=== PATIENT | female | born 1975 | race Two or more races ===

== ENCOUNTER 2021-11-12 07:51 | Outpatient (CLI) | payer OTHER | END 2021-11-12 07:52 | disposition home or self-care (01) | LOC: LAB 07:51 | PROVIDERS: ATTEND Internal Medicine Hematology & Oncology | DX: D50.8 Other iron deficiency anemias (principal); R79.9 Abnormal finding of blood chemistry, unspecified; I10 Essential (primary) hypertension; R74.02 Elevation of levels of lactic acid dehydrogenase [LDH]; K76.89 Other specified diseases of liver; E03.8 Other specified hypothyroidism; E06.3 Autoimmune thyroiditis; D69.6 Thrombocytopenia, unspecified; B20 Human immunodeficiency virus [HIV] disease; B17.9 Acute viral hepatitis, unspecified; Z11.59 Encounter for screening for other viral diseases; D51.3 Other dietary vitamin B12 deficiency anemia; E78.2 Mixed hyperlipidemia; J45.998 Other asthma ==

== ENCOUNTER 2022-03-11 20:20 | Emergency (ER) | payer OTHER ==
[~2022-03-11] VITALS: Ht 165.1 cm; Wt 68.0 kg
[2022-03-11] MEDS ORDERED: ACETAMINOPHEN650 M2 (21:46)
[2022-03-11] MEDS ORDERED: KETO10TA2 PO (21:53)
[2022-03-11] MEDS ORDERED: NORFLEX100MG PO (21:53)
[2022-03-11] MEDS ORDERED: MEDROLPACK PO (21:53)
== END 2022-03-11 22:22 | disposition home or self-care (01) ==
LOC: ER 20:20
DX: M79.662 Pain in left lower leg (principal); Z88.6 Allergy status to analgesic agent; Z91.013 Allergy to seafood

== ENCOUNTER 2022-07-13 08:03 | Outpatient (CLI) | payer OTHER ==
[~2022-07-13 08:03] MED LIST: ACETAMINOPHEN650 M2; KETO10TA2 PO; MEDROLPACK PO; NORFLEX100MG PO
== END 2022-07-13 08:04 | disposition home or self-care (01) ==
LOC: LAB 08:03
PROVIDERS: ATTEND Internal Medicine Hematology & Oncology
DX: D50.8 Other iron deficiency anemias (principal); R79.9 Abnormal finding of blood chemistry, unspecified; I10 Essential (primary) hypertension; R74.02 Elevation of levels of lactic acid dehydrogenase [LDH]; K76.89 Other specified diseases of liver; D69.6 Thrombocytopenia, unspecified; D53.1 Other megaloblastic anemias, not elsewhere classified; E78.2 Mixed hyperlipidemia; J45.998 Other asthma

== ENCOUNTER → 2023-01-07 06:29 | Outpatient (CLI) | payer OTHER | END | disposition home or self-care (01) | LOC: LAB 06:29 | PROVIDERS: ATTEND Internal Medicine Hematology & Oncology | DX: D50.8 Other iron deficiency anemias (principal); R79.9 Abnormal finding of blood chemistry, unspecified; I10 Essential (primary) hypertension; R74.02 Elevation of levels of lactic acid dehydrogenase [LDH]; K76.89 Other specified diseases of liver; C50.919 Malignant neoplasm of unspecified site of unspecified female breast; R97.8 Other abnormal tumor markers; C25.9 Malignant neoplasm of pancreas, unspecified; C56.9 Malignant neoplasm of unspecified ovary; R97.1 Elevated cancer antigen 125 [CA 125]; R97.0 Elevated carcinoembryonic antigen [CEA]; D69.6 Thrombocytopenia, unspecified; D51.3 Other dietary vitamin B12 deficiency anemia; E78.2 Mixed hyperlipidemia; J45.998 Other asthma ==

== ENCOUNTER 2023-07-12 08:04 | Outpatient (CLI) | payer OTHER ==
[2023-07-12 10:23] LABS: HEMATOCRIT 42.7 % (36.0-45.00); HEMOGLOBIN 14.6 g/dL (12.0-15.00); MEAN CELL VOLUME 89.2 fL (80.00-100.00); MEAN CORPUSCULAR HEMOGLOBIN 30.5 pg (27.00-32.0); MEAN CORPUSCULAR HGB CONC 34.2 g/dl (32.0-36.0); PLATELET COUNT 198 K/uL (150-450); RED BLOOD COUNT 4.78 M/uL (4.00-6.00); RED CELL DISTRIBUTION WIDTH 13.3 % (11.5-14.5)
[2023-07-12 11:14] LABS: ALBUMIN 4.2 gm/dL (3.4-5.0); BILIRUBIN TOTAL 0.75 mg/dL (0.3-1.2); CALCIUM 8.8 mg/dL (8.5-10.1); CREATININE SERUM 0.74 mg/dL (0.55-1.02); GFR 83.07; GLOBULINA 3.3 G/DL (2.4-3.5); POTASSIUM 4.58 mEq/L (3.5-5.1); TOTAL PROTEIN 7.5 gm/dL (6.4-8.2)
[2023-07-14 10:57] LABS: FOLIC ACID 8.16 ng/ml (4.78-20)
[2023-07-14 14:40] LABS: MANUAL PLATELET COUNT 464
[2023-07-14 14:47] LABS: PLATELET ESTIMATE NORMAL (NORMAL)
== END 2023-07-12 23:00 | disposition home or self-care (01) ==
LOC: LAB 08:04
PROVIDERS: ATTEND Internal Medicine Hematology & Oncology
DX: D69.6 Thrombocytopenia, unspecified (principal); D51.3 Other dietary vitamin B12 deficiency anemia; E78.2 Mixed hyperlipidemia; J45.998 Other asthma; D50.8 Other iron deficiency anemias; R79.9 Abnormal finding of blood chemistry, unspecified; K76.89 Other specified diseases of liver; E55.9 Vitamin D deficiency, unspecified

== ENCOUNTER 2024-02-26 09:27 | Outpatient (CLI) | payer OTHER | END 2024-02-26 09:28 | disposition home or self-care (01) | LOC: NUCLEAR 09:27 | PROVIDERS: ATTEND Internal Medicine Hematology & Oncology | DX: D69.6 Thrombocytopenia, unspecified (principal); D51.3 Other dietary vitamin B12 deficiency anemia; E78.2 Mixed hyperlipidemia; J45.998 Other asthma; I78.8 Other diseases of capillaries ==

== ENCOUNTER 2024-02-27 09:31 | Outpatient (CLI) | payer OTHER | END 2024-02-27 09:32 | disposition home or self-care (01) | LOC: NUCLEAR 09:31 | PROVIDERS: ATTEND Internal Medicine Hematology & Oncology | DX: I70.213 Atherosclerosis of native arteries of extremities with intermittent claudication, bilateral legs (principal); I78.8 Other diseases of capillaries ==

== ENCOUNTER → 2024-07-03 08:01 | Outpatient (CLI) | payer OTHER ==
[2024-07-03 09:41] LABS: HEMATOCRIT 42.5 % (36.0-45.00); HEMOGLOBIN 14.8 g/dL (12.0-15.00); MEAN CELL VOLUME 86.1 fL (80.00-100.00); MEAN CORPUSCULAR HEMOGLOBIN 29.9 pg (27.00-32.0); MEAN CORPUSCULAR HGB CONC 34.7 g/dl (32.0-36.0); PLATELET COUNT 170 K/uL (150-450); RED BLOOD COUNT 4.94 M/uL (4.00-6.00); RED CELL DISTRIBUTION WIDTH 13.7 % (11.5-14.5)
[2024-07-03 10:15] LABS: ALBUMIN 4.1 gm/dL (3.4-5.0); BILIRUBIN TOTAL 0.57 mg/dL (0.3-1.2); CALCIUM 8.9 mg/dL (8.5-10.1); CREATININE SERUM 0.65 mg/dL (0.55-1.02); GFR 96.09; GLOBULINA 3.1 G/DL (2.4-3.5); POTASSIUM 4.31 mEq/L (3.5-5.1); TOTAL PROTEIN 7.2 gm/dL (6.4-8.2)
[2024-07-04 14:24] LABS: FOLIC ACID 11.43 ng/ml (4.78-20); VITAMIN D3 25 HYDROXY 40.69 ng/ml (30-120)
== END | disposition home or self-care (01) ==
LOC: LAB 08:01
PROVIDERS: ATTEND Internal Medicine Hematology & Oncology
DX: D69.6 Thrombocytopenia, unspecified (principal); D51.3 Other dietary vitamin B12 deficiency anemia; E78.2 Mixed hyperlipidemia; J45.998 Other asthma; D50.8 Other iron deficiency anemias; R79.9 Abnormal finding of blood chemistry, unspecified; I10 Essential (primary) hypertension; R74.02 Elevation of levels of lactic acid dehydrogenase [LDH]; K76.89 Other specified diseases of liver; D51.8 Other vitamin B12 deficiency anemias; E55.9 Vitamin D deficiency, unspecified; D51.1 Vitamin B12 deficiency anemia due to selective vitamin B12 malabsorption with proteinuria; D51.0 Vitamin B12 deficiency anemia due to intrinsic factor deficiency

== ENCOUNTER 2024-12-31 07:35 | Outpatient (CLI) | payer OTHER ==
[2024-12-31 08:55] LABS: BASO % 0.6 % (0.1-1.2); EOS # 0.22 (0.04-0.54); EOS % 4.1 % (0.7-7.0); LYMPH # 1.58 (1.18-3.74); LYMPH % 29.8 % (19.3-53.1); MEAN PLATELET VOLUME 12.40 fl (9.4-12.4); MONO # 0.36 (0.24-0.82); MONO % 6.8 % (4.7-12.5); NEUT # 3.11 (1.56-6.13); NEUT % 58.5 % (34.0-71.1); RED CELL DISTRIBUTION WIDTH 12.8 % (11.6-14.4)
[2024-12-31 09:54] LABS: ALT/SGPT 26.0 U/L (12-78); AST/SGOT 11.0 U/L (15-37); BILIRUBIN TOTAL 0.63 mg/dL (0.3-1.2); BUN CREA RATIO 14.0 (7.0-25.0); CREATININE SERUM 0.72 mg/dL (0.55-1.02); FE 57.0 ug/dl (50-170); GFR 85.4; GLOBULINA 3.4 G/DL (2.4-3.5); GLUCOSE FASTING 79.0 mg/dL (65-100); LDH 170.0 U/L (84-246); OSMOLALITY SERUM 281.0 MOSM/KG (275-295)
[2024-12-31 11:24] LABS: FOLIC ACID 10.50 ng/ml (4.78-20); VITAMIN D3 25 HYDROXY 42.73 ng/ml (30-120)
[2024-12-31 16:39] LABS: MANUAL PLATELET COUNT 177
== END 2024-12-31 08:01 | disposition home or self-care (01) ==
LOC: LAB 07:35
PROVIDERS: ATTEND Internal Medicine Hematology & Oncology
DX: D50.8 Other iron deficiency anemias (principal); R79.9 Abnormal finding of blood chemistry, unspecified; I10 Essential (primary) hypertension; R74.02 Elevation of levels of lactic acid dehydrogenase [LDH]; K76.89 Other specified diseases of liver; E55.9 Vitamin D deficiency, unspecified; D51.1 Vitamin B12 deficiency anemia due to selective vitamin B12 malabsorption with proteinuria; D51.0 Vitamin B12 deficiency anemia due to intrinsic factor deficiency; D69.6 Thrombocytopenia, unspecified; D51.3 Other dietary vitamin B12 deficiency anemia; J45.998 Other asthma; I78.8 Other diseases of capillaries